=== PATIENT | male | born 1965 | race Caucasian/White ===

== ENCOUNTER 2017-03-16 13:23 | Emergency (ER) | payer MEDICAID, OTHER ==
[~2017-03-16] VITALS: Ht 162.6 cm; Wt 43.3 kg
[2017-03-16 13:25] VITALS: Ht 162.6 cm; Wt 43.3 kg
[2017-03-16] MEDS ORDERED: ONDANSETRON 4 MG INJ IV STA (15:47)
[2017-03-16] MEDS ORDERED: SOD CHLORIDE 0.9% 1,000 ML IV STA (15:47)
[2017-03-16] MEDS ORDERED: KETOROLAC 15 MG INJ IV STA (15:47)
[2017-03-16] MEDS ORDERED: FAMOTIDINE 20 MG TAB PO STA (15:47)
[2017-03-16] MEDS ORDERED: BELLADONNA/PHENOBARBITAL TAB PO STA (15:47)
[2017-03-16] MEDS ORDERED: LIDOCAINE/MYLANTA 40 ML BTL PO STA (15:47)
[2017-03-16 16:07] LABS: BASOPHILS % 0.4 % (0.0-2.0); EOSINOPHILS # 0.1 10^3/ul (0.0-0.5); EOSINOPHILS % 1.1 % (0.0-7.0); HEMOGLOBIN 14.8 g/dl (14.0-18.0); LYMPHOCYTES # 2.2 10^3/ul (0.8-2.9); LYMPHOCYTES % 25.7 % (15.0-51.0); MEAN CORPUSCULAR HEMOGLOBIN 27.1 pg (29.0-33.0); MEAN CORPUSCULAR HGB CONC 33.6 g/dl (32.0-37.0); MEAN CORPUSCULAR VOLUME 80.6 fl (82.0-101.0); MEAN PLATELET VOLUME 9.4 fl (7.4-10.4); MONOCYTE # 0.6 10^3/ul (0.3-0.9); MONOCYTES % 7.2 % (0.0-11.0); NEUTROPHIL # 5.5 10^3/ul (1.6-7.5); NEUTROPHILS % 65.4 % (39.0-77.0); PLATELET COUNT 214 10^3/UL (140-415); RED BLOOD COUNT 5.46 10^6/ul (4.70-6.10); RED CELL DISTRIBUTION WIDTH 13.2 % (11.5-14.5); WHITE BLOOD COUNT 8.4 10^3/ul (4.8-10.8)
[2017-03-16 16:11] LABS: ADD UMIC NO; UR ASCORBIC ACID NEGATIVE (NEGATIVE); UR BILIRUBIN (Dip) NEGATIVE (NEGATIVE); UR BLOOD (Dip) NEGATIVE (NEGATIVE); UR CLARITY CLEAR (CLEAR); UR COLOR STRAW (YELLOW); UR GLUCOSE (Dip) NEGATIVE (NEGATIVE); UR KETONES (Dip) NEGATIVE (NEGATIVE); UR LEUKOCYTE ESTERASE (Dip) NEGATIVE Leu/ul (NEGATIVE); UR NITRITE (Dip) NEGATIVE (NEGATIVE); UR SPECIFIC GRAVITY (Dip) 1.009 (1.003-1.030); UR TOTAL PROTEIN (Dip) NEGATIVE (NEGATIVE); UR UROBILINOGEN (Dip) NEGATIVE (NEGATIVE)
--- NOTE | 2017-03-16 16:23 | RADRPT ---
PROCEDURE: XR Chest. CLINICAL INDICATION: Shortness of breath TECHNIQUE: Single portable view of the chest was obtained COMPARISON: No priors for comparison FINDINGS: The trachea is midline. The cardiac silhouette and pulmonary vascularity are within normal limits. T he lungs are clear. The costophrenic angles are sharp. IMPRESSION: 1. No evidence of acute cardiopulmonary disease. RPTAT: EE Physician Joey Date Time Electronically viewed and signed by Rudy Alicia Physician on 03/16/2017 16:23 CARLOS/
[2017-03-16 16:26] LABS: PROTIME 13.2 Sec (12.2-14.2)
[2017-03-16 16:28] LABS: ALANINE AMINOTRANSFERASE 33 IU/L (13-69); ALBUMIN 4.2 g/dl (3.3-4.9); ALBUMIN/GLOBULIN RATIO 1.35; ALKALINE PHOSPHATASE 58 IU/L (42-121); ANION GAP 16 (8-16); ASPARTATE AMINO TRANSFERASE 19 IU/L (15-46); BILIRUBIN,INDIRECT 0.3 mg/dl (0-1.1); BILIRUBIN,TOTAL 0.3 mg/dl (0.2-1.3); BLOOD UREA NITROGEN 19 mg/dl (7-20); CALCIUM 9.4 mg/dl (8.4-10.2); CARBON DIOXIDE 26 mmol/L (21-31); CHLORIDE 107 mmol/L (97-110); CREATININE 0.94 mg/dl (0.61-1.24); GLUCOSE 88 mg/dl (70-220); POTASSIUM 4.7 mmol/L (3.5-5.1); SODIUM 144 mmol/L (135-144); TOTAL PROTEIN 7.3 g/dl (6.1-8.1)
[2017-03-16 16:44] LABS: TROPONIN-I < 0.012 ng/ml (0.00-0.12)
--- NOTE | 2017-03-16 17:01 | RADRPT ---
PROCEDURE: CT abdomen and pelvis without contrast. CLINICAL INDICATION: Abdominal pain. TECHNIQUE: CT of the abdomen and pelvis was performed without contrast. Coronal and sagittal reform atted images were obtained from the axial source images. Images were reviewed on a high-resolution [employer] workstation. The total exam CTDI equals 3.92 mGy and the total exam DLP equals 203.34 mGy-cm. DI COM images are available. One or more of the following dose reduction techniques were used: - Automated exposure control. - Adjustment of the mA and/or kV according to patient size. - Use of iterative reconstruction technique. COMPARISON: None available. FINDINGS: Visualized lower thorax: There is a calcified granuloma in the right lower lobe. There is a [address] eural-based nodule in the lateral left lower lobe. The visualized lung bases are otherwise clear. Th e visualized heart is unremarkable. Hepatobiliary system and spleen: The liver is grossly unremarkable. There is no intra or extrahepat ic biliary ductal dilatation. The gallbladder is grossly unremarkable. The spleen is grossly unremar kable. The pancreas is grossly unremarkable. Adrenal glands and genitourinary system: The adrenal glands are grossly unremarkable. Both kidneys are under-rotated. There is a 2 mm nonobstructing stone at the lower pole of the right kidney. There is no hydronephrosis. The urinary bladder is grossly unremarkable. The prostate gland and seminal v esicles are grossly unremarkable. Gastrointestinal system: There is no bowel wall thickening or evidence of obstruction. The appendix appears to be nondilated within the right lower quadrant, but evaluation is limited given the lack of intravenous contrast and paucity of mesenteric fat. Peritoneum, vascular, and lymphatics: There is no free intraperitoneal air or free fluid. There is no mesenteric or retroperitoneal adenopathy. There are atherosclerotic changes of the aorta, which i s nonaneurysmal. Musculoskeletal system and soft tissues: There are no concerning osseous lesions. The soft tissues are unremarkable. IMPRESSION: 1. Calcified granuloma in the right lower lobe. 2. Pleural-based 6 mm nodule in the lateral left lower lobe. Per the Fleischner Society, if the pat ient is at low risk, CT scan at 6-12 months is recommended, then consider CT scan and 18-24 months. If the patient is at high risk, CT scan at 6-12 months and then at 18-24 months is recommended. 3. Nonobstructing 2 mm stone at the lower pole of the right kidney. No hydronephrosis. 4. Vascular calcifications consistent with atherosclerosis. RPTAT: HLBP .Oni Xiao MD, Date Time Electronically viewed and signed by .Oni Xiao MD, on 03/16/2017 17:00 .P/
--- NOTE | 2017-03-16 17:46 | ERD ---
ER Documentation Chief Complaint Chief Complaint generalized abdominal pain radiating to the back HPI 51-year-old man with complaints of generalized upper abdominal and bilateral flank pain, pain worse on the right flank compared to the left. Patient has had some nausea but no vomiting or diarrhea, no hematuria, no fevers or chills, no complaints of chest pain or shortness of breath. Patient denies recent weight loss, hemoptysis, cough, or shortness of breath. ROS All systems reviewed and are negative except as per history of present illness. Medications Home Meds Active Scripts Oxycodone HCl/Acetaminophen (Percocet 5-325 mg Tablet) 1 Each Tablet, 1 EACH PO BID for PAIN LEVEL 6-10, #10 TAB Prov:NATE ARBOLEDA MD 03/16/17 Ibuprofen* (Ibuprofen*) 600 Mg Tablet, 600 MG PO Q8 for PAIN AND/OR INFLAMMATION , #30 TAB Prov:NATE ARBOLEDA MD 03/16/17 PMhx/Soc Tobacco smoker History of Surgery: No Anesthesia Reaction: No Hx Neurological Disorder: No Hx Respiratory Disorders: No Hx Cardiac Disorders: No Hx Psychiatric Problems: No Hx Miscellaneous Medical Probl: No Hx Alcohol Use: No Hx Substance Use: No Hx Tobacco Use: No Smoking Status: Never smoker FmHx Family History: No diabetes Physical Exam Vitals Vital Signs Date Time Temp Pulse Resp B/P Pulse Ox O2 Delivery O2 Flow Rate FiO2 03/16/17 17:59 97.8 70 17 116/64 100 Room Air 03/16/17 13:25 97.8 74 18 108/66 99 Physical Exam GENERAL: Well-developed, appears dehydrated, afebrile HEENT: Dry mucous membranes, pink conjunctiva, no cervical spine tenderness or step-off deformities, no goiter, no jaundice or icterus, extraocular movements intact without pain. No submandibular induration, and no pharyngeal erythema NEURO: Alert and oriented 3, cranial nerves II through XII intact bilaterally, pupils equal round reactive to light, no focal deficits or facial asymmetry, sensation intact distally Strength 5/5 in upper and lower extremities bilaterally CARDIAC: Regular rate and rhythm, no murmurs rubs or gallops LUNGS: Clear bilaterally no wheezing crackles or stridor ABDOMEN: Soft nontender, no guarding, no rigidity, no rebound, no psoas sign no obturator sign. Normoactive bowel sounds SKIN: Warm and dry to touch, no abrasions, contusions, or hematomas, no lacerations, no ecchymosis, no target lesions, and without ulcers EXTREMITIES: No clubbing cyanosis or edema, calves are bilaterally symmetrical, no Homans sign, no popliteal cord sign. Distal pulses equal and bilateral PSYCH: Normal affect without agitation or irritability Result Diagram: 03/16/17 1559 03/16/17 1559 Results 24 hrs Laboratory Tests Test 03/16/17 15:59 White Blood Count 8.410^3/ul Red Blood Count 5.4610^6/ul Hemoglobin 14.8g/dl Hematocrit 44.0% Mean Corpuscular Volume 80.6fl Mean Corpuscular Hemoglobin 27.1pg Mean Corpuscular Hemoglobin Concent 33.6g/dl Red Cell Distribution Width 13.2% Platelet Count 85142^3/UL Mean Platelet Volume 9.4fl Neutrophils % 65.4% Lymphocytes % 25.7% Monocytes % 7.2% Eosinophils % 1.1% Basophils % 0.4% Nucleated Red Blood Cells % 0.0/100WBC Neutrophils # 5.510^3/ul Lymphocytes # 2.210^3/ul Monocytes # 0.610^3/ul Eosinophils # 0.110^3/ul Basophils # 0.010^3/ul Nucleated Red Blood Cells # 0.010^3/ul Prothrombin Time 13.2Sec Prothrombin Time Ratio 1.0 INR International Normalized Ratio 1.00 Urine Color STRAW Urine Clarity CLEAR Urine pH 6.0 Urine Specific [place] 1.009 Urine Ketones NEGATIVEmg/dL Urine Nitrite NEGATIVEmg/dL Urine Bilirubin NEGATIVEmg/dL Urine Urobilinogen NEGATIVEmg/dL Urine Leukocyte Esterase NEGATIVELeu/ul Urine Hemoglobin NEGATIVEmg/dL Urine Glucose NEGATIVEmg/dL Urine Total Protein NEGATIVEmg/dl Sodium Level 144mmol/L Potassium Level 4.7mmol/L Chloride Level 107mmol/L Carbon Dioxide Level 26mmol/L Anion Gap 16 Blood Urea Nitrogen 19mg/dl Creatinine 0.94mg/dl Glucose Level 88mg/dl Calcium Level 9.4mg/dl Total Bilirubin 0.3mg/dl Direct Bilirubin 0.00mg/dl Indirect Bilirubin 0.3mg/dl Aspartate Amino Transf (AST/SGOT) 19IU/L Alanine Aminotransferase (ALT/SGPT) 33IU/L Alkaline Phosphatase 58IU/L Troponin I < 0.012ng/ml Total Protein 7.3g/dl Albumin 4.2g/dl Globulin 3.10g/dl Albumin/Globulin Ratio 1.35 Lipase 207U/L Current Medications Medications (Trade) Dose Ordered Sig/Marysol Route PRN Reason Start Time Stop Time Status Last Admin Dose Admin Sodium Chloride (NS) 1,000 ml @ 1,000 mls/hr Q1H STAT IV 03/16/17 15:47 03/16/17 16:46 DC 03/16/17 16:05 Ondansetron HCl (Zofran Inj) 4 mg ONCE STAT IV 03/16/17 15:47 03/16/17 15:49 DC 03/16/17 16:03 Famotidine (Pepcid) 40 mg ONCE STAT PO 03/16/17 15:47 03/16/17 15:49 DC 03/16/17 16:04 Miscellaneous Medication (Gi Cocktail (2)) 40 ml ONCE STAT PO 03/16/17 15:47 03/16/17 15:49 DC 03/16/17 16:03 Belladonna/ Phenobarbital () 2 tab ONCE STAT PO 03/16/17 15:47 03/16/17 15:49 DC 03/16/17 16:02 Ketorolac Tromethamine (Toradol) 15 mg ONCE STAT IV 03/16/17 15:47 03/16/17 15:49 DC 03/16/17 16:03 Procedures/MDM IV line was established patient was placed on staff design engineer rhythm strip revealed a sinus bradycardia at 60 bpm with upright P and T waves. Patient was afebrile EKG performed, read by me: Sinus bradycardia 54 bpm, normal axis, no acute ST segment changes, narrow QRS complex, with good R-wave progression in precordial leads. CT scan of the abdomen and pelvis was performed:IMPRESSION: 1. Calcified granuloma in the right lower lobe. 2. Pleural-based 6 mm nodule in the lateral left lower lobe. Per the Fleischner Society, if the patient is at low risk, CT scan at 6-12 months is recommended, then consider CT scan and 18-24 months. If the patient is at high risk, CT scan at 6-12 months and then at 18-24 months is recommended. 3. Nonobstructing 2 mm stone at the lower pole of the right kidney. No hydronephrosis. 4. Vascular calcifications consistent with atherosclerosis. One AP view of the chest performed, read by me reveals no acute infiltrates, normal mediastinum, sharp costophrenic and cardiac borders, no air under the diaphragm. Otherwise unremarkable chest x-ray. I administered 1 L normal saline intravenously, Toradol 15 mg IV, Zofran 4 mg IV , GI cocktail 30 cc p.o., famotidine 40 mg p.o. with good results. Patient's pain completely resolved. CBC was unremarkable, electrolytes normal, liver function tests normal, troponin negative. Urine analysis was negative for infection. I spoke to the patient and his daughter who was at the bedside regarding the CT scan findings including the small pleural-based mass, copies of the CT scan report were given to them and they agreed to follow-up with PMD for continued outpatient imaging. Differential diagnoses considered, included but not limited to acute coronary syndrome, pulmonary embolism, aortic dissection, abdominal aortic aneurysm, sepsis, stroke, meningitis, encephalitis, pneumonia, appendicitis, cholecystitis , bowel obstruction, pyelonephritis, nephrolithiasis, cystitis, as well as metabolic, hematologic, and electrolyte abnormalities. As well as abscess, cellulitis, fractures, and dislocations. Patient feels much better at this time, and vital signs are normal, symptoms have improved. I did give strict instructions to return to the ED if symptoms continue or worsen, patient will otherwise follow-up with primary care physician. Patient understood instructions and agreed to plan. Disclaimer: Inadvertent spelling and grammatical errors are likely due to EHR/ dictation software use and do not reflect on the overall quality of patient care. Also, please note that the electronic time recorded on this note does not necessarily reflect the actual time of the patient encounter. Departure Diagnosis: Primary Impression: Pleural mass Additional Impressions: Kidney stone Dehydration Condition: Good NATE ARBOLEDA MD Mar 16, 2017 17:46
[2017-03-16] MEDS ORDERED: IBUP-1542 PO (17:48)
[2017-03-16] MEDS ORDERED: OXYC-279 PO (17:48)
[2017-03-16 17:59] VITALS: BP 116/64; PULSE 70; RESP 17; TEMP 97.8
== END 2017-03-16 18:02 | disposition home or self-care (01) ==
LOC: E/R 13:23
DX: N20.0 Calculus of kidney (principal); R91.8 Other nonspecific abnormal finding of lung field; E86.0 Dehydration
CPT/HCPCS: 36415; 71010; 74176; 80053; 81003; 83690; 84484; 85025; 85610; 93005; 96374; 96375; J1885; J2405; J7030; Z7502; Z7610

== ENCOUNTER 2017-09-14 12:49 | Emergency (ER) | END 2017-09-14 16:22 | disposition home or self-care (01) ==

== ENCOUNTER 2017-10-28 17:24 | Emergency (ER) | END 2017-10-28 20:35 | disposition left against medical advice (07) ==

== ENCOUNTER 2017-10-29 12:31 | Emergency (ER) | END 2017-10-29 16:50 | disposition home or self-care (01) ==

== ENCOUNTER 2019-01-04 12:56 | Emergency (ER) | payer OTHER ==
[~2019-01-04] VITALS: Ht 165.1 cm; Wt 41.4 kg
[~2019-01-04 12:56] MED LIST: DOCU-144 PO; IBUP-1542 PO; IBUP-1561 PO; ONDA4TAB14 PO; ONDA8TAB14 PO; OXYC-279 PO; SENN-120 PO
[2019-01-04 13:10] VITALS: Ht 165.1 cm; Wt 41.4 kg
[2019-01-04] MEDS ORDERED: KETOROLAC 30 MG INJ IM STA (16:08)
[2019-01-04 17:00] VITALS: BP 96/63; PULSE 57; RESP 18
== END 2019-01-04 17:00 | disposition home or self-care (01) ==
LOC: E/R 12:56
DX: K59.00 Constipation, unspecified (principal); Z87.891 Personal history of nicotine dependence
CPT/HCPCS: 74176; 80053; 81003; 83690; 85025; 96372; J1885; Z7502; Z7610